=== PATIENT | female | born 1950 | race African-American/Black ===

== ENCOUNTER → 2021-05-25 | Day surgery (SDC) | payer MEDICARE ==
[~2021-05-25] VITALS: Ht 160 cm; Wt 68.5 kg
[~2021-05-25] MED LIST: AMARYL2 MG PO; ASPIRIN EC81 MG PO; ATENOLOL-CHLOR1 EACH PO; COSOPT PF EYE1 EACH EYEBOTH; COZAAR50 MG PO; LEVEMIR VI100 UNITS/ SC; LIPITOR20 MG PO; METFORMIN HCL500 MG PO; SYNTHROID25 MCG PO; VITAMIN D325 MC2 PO; XALATAN2.5 ML OU
[2021-05-25 08:51] LABS: HCT 39.3 % (37.0-47.0); HGB 12.5 g/dl (12.5-16.0); MCH 26.8 pg (25.0-31.0); MCHC 31.8 g/dL (32.0-36.0); MCV 84.2 fL (78.0-100.0); MPV 9.8 fL (6.0-9.5); RBC 4.67 M/uL (4.20-5.40); RDW 13.1 % (11.5-14.0); WBC 6.5 K/uL (4.0-10.5)
[2021-05-25 09:36] LABS: BILIRUBIN - TOTAL 0.5 mg/dL (0.2-1.0); BUN/CREAT RATIO (CALC) 14.4 RATIO; CREATININE 1.25 mg/dL (0.51-0.95); GLOBULIN (CALCULATION) 3.3 g/dL; POTASSIUM 3.7 mmol/L (3.5-5.1); TOTAL PROTEIN 7.3 g/dL (6.4-8.2)
== END | disposition home or self-care (01) ==
LOC: FAS 07:58
PROVIDERS: Surgery
DX: Z12.11 Encounter for screening for malignant neoplasm of colon (principal); K57.30 Diverticulosis of large intestine without perforation or abscess without bleeding; E11.9 Type 2 diabetes mellitus without complications; I10 Essential (primary) hypertension; K21.9 Gastro-esophageal reflux disease without esophagitis; E03.9 Hypothyroidism, unspecified; E78.5 Hyperlipidemia, unspecified; Z87.891 Personal history of nicotine dependence; Z88.0 Allergy status to penicillin; Z88.1 Allergy status to other antibiotic agents; Z79.82 Long term (current) use of aspirin; Z79.4 Long term (current) use of insulin; Z79.899 Other long term (current) drug therapy
CPT/HCPCS: 36415; 80053; J1610; J2250; J2704; J7120

== ENCOUNTER 2021-12-02 16:43 | Emergency (ER) | payer MEDICARE ==
[2021-12-02 17:35] LABS: BASOPHIL 0.3 % (0-2); EOSINOPHIL 1.2 % (0-7); HCT 36.1 % (37.0-47.0); HGB 11.8 g/dl (12.5-16.0); MCH 26.9 pg (25.0-31.0); MCHC 32.7 g/dL (32.0-36.0); MCV 82.4 fL (78.0-100.0); MONOCYTE 8.8 % (0-12); MPV 9.8 fL (6.0-9.5); NEUTROPHIL 67.3 % (41-80); NRBC 0; PLT 343 K/uL (150-400); RBC 4.38 M/uL (4.20-5.40); RDW 12.4 % (11.5-14.0); WBC 12.3 K/uL (4.0-10.5)
[2021-12-02 17:40] LABS: INR 1.04 (0.9-1.2); PTT 26.2 SECONDS (24.4-34.7)
[2021-12-02 17:50] LABS: ALBUMIN 4.1 g/dL (3.4-5.0); BILIRUBIN - TOTAL 0.5 mg/dL (0.2-1.0); BUN/CREAT RATIO (CALC) 12.5 RATIO; CREATININE 1.68 mg/dL (0.51-0.95); POTASSIUM 3.1 mmol/L (3.5-5.1); TOTAL PROTEIN 7.1 g/dL (6.4-8.2)
== END 2021-12-03 16:00 | disposition other institution (70) ==
LOC: FER 16:43
PROVIDERS: Emergency Medicine
DX: G45.9 Transient cerebral ischemic attack, unspecified (principal); E11.22 Type 2 diabetes mellitus with diabetic chronic kidney disease; I12.9 Hypertensive chronic kidney disease with stage 1 through stage 4 chronic kidney disease, or unspecified chronic kidney disease; N18.9 Chronic kidney disease, unspecified; Z88.0 Allergy status to penicillin; Z88.1 Allergy status to other antibiotic agents; Z20.822 Contact with and (suspected) exposure to COVID-19
CPT/HCPCS: 36415; 70450; 71045; 80053; 80061; 84484; 85025; 85610; 85730; 93005; J1815; J7030; U0002